=== PATIENT | female | born 1965 | race Caucasian/White ===

== ENCOUNTER 2017-06-30 10:09 | Emergency (ER) | payer BC ==
[~2017-06-30] VITALS: Ht 170.2 cm; Wt 59.0 kg
[2017-06-30] MEDS ORDERED: PANTOPRAZOLE SODIUM 40 MG VIAL ONE (10:58)
[2017-06-30] MEDS ORDERED: ONDANSETRON 4 MG/2 ML VIAL ONE (10:58)
[2017-06-30] MEDS ORDERED: PANTOPRAZOLE SODIUM 40 MG VIAL IV ONE (11:00)
[2017-06-30] MEDS ORDERED: ONDANSETRON 4 MG/2 ML VIAL IV ONE (11:00)
[2017-06-30] MEDS ORDERED: IV NORMAL SALINE 1000 ML BAG IV ONE (11:00)
[2017-06-30 11:06] LABS: BASOPHILS % (AUTO) 0.3 % (0.0-2.0); EOSINOPHILS % (AUTO) 0.3 % (0.0-7.0); HEMATOCRIT 40.5 % (31.2-41.9); HEMOGLOBIN 13.8 g/dL (10.9-14.3); LYMPHOCYTES # (AUTO) 0.5 K/uL (20.0-40.0); LYMPHOCYTES % (AUTO) 6.1 % (20.5-51.5); MEAN CORPUSCULAR HEMOGLOBIN 31.7 uug (24.7-32.8); MEAN CORPUSCULAR HGB CONC 34 g/dL (32.3-35.6); MEAN CORPUSCULAR VOLUME 93.1 fL (75.5-95.3); MONOCYTES # (AUTO) 0.4 K/uL (2.0-10.0); MONOCYTES % (AUTO) 4.6 % (0.0-11.0); NEUTROPHILS # (AUTO) 7.1 K/uL (1.8-8.9); NEUTROPHILS % (AUTO) 88.7 % (38.5-71.5); PLATELET COUNT (AUTO) 170 K/uL (179-408); RED BLOOD CELL COUNT(AUTO) 4.35 MIL/uL (3.63-4.92)
[2017-06-30 11:14] LABS: CREATININE 0.8 mg/dL (0.6-1.3); POTASSIUM 3.8 mmol/L (3.5-5.1)
[2017-06-30 11:19] LABS: BILIRUBIN,DIRECT 0.1 mg/dL (0.0-0.2); BILIRUBIN,TOTAL 0.4 mg/dL (0.2-1.0); TOTAL PROTEIN, SERUM 7.6 g/dL (6.4-8.2)
--- NOTE | 2017-06-30 11:46 | NUR ---
PATIENT WAS SEEN BY MD FOR C/O ABDOMINAL PAIN AND NAUSEA. LABS COMPLETED. XRAY DONE. MEDICATIONS GIVEN ORDERD. PATIENT STATES NAUSEA HAS DIMINISHED. AWAITING FOR SECOND TROPONIN TO BE DRAWN IN COUPLE HOURS.
--- NOTE | 2017-06-30 13:51 | NUR ---
PATIENT IS AWAKE AND ALERT WITH NO NEW COMPLAINTS. AWAITING SECOND TROPONIN.
--- NOTE | 2017-06-30 14:47 | NUR ---
DR JJ WAS AT BEDSIDE SPEAKING TO PATIENT ABOUT TEST RESULTS AND REASON FOR ADMISSION TO HOSPITAL..BUT PATIENT REFUSED ADMISSION TO HOSPITAL.
--- NOTE | 2017-06-30 14:48 | NUR ---
IV removed. Catheter intact and site benign. Pressure and 4x4 gauze applied to site. No bleeding noted.
[2017-06-30] MEDS ORDERED: CLOPIDOGREL 75 MG TABLET ONE (14:52)
[2017-06-30] MEDS ORDERED: CLOPIDOGREL 75 MG TABLET PO ONE (15:00)
--- NOTE | 2017-06-30 15:03 | NUR ---
DC, RX AND FOLLOW UP INSTRUCTIONS GIVEN AND EXPLAINED TO PATIENT WHO STATESS HE UNDERSTANDS ALL INSTRUCTIONS.
[2017-06-30 15:07] VITALS: BP 109/72
== END 2017-06-30 15:08 | disposition home or self-care (01) ==
LOC: ER 10:09
DX: R07.89 Other chest pain (principal); F17.210 Nicotine dependence, cigarettes, uncomplicated
CPT/HCPCS: 36415; 71045; 80048; 80076; 83690; 84484 ×2; 85025; 93005 ×2; 96361; 96374; 96375; 99285; A4663; C9113; J2405; J7030; 70030-TC; J3490